=== PATIENT | female | born 1970 | race African-American/Black ===

== ENCOUNTER 2018-02-22 19:04 | Emergency (ER) | payer OTHER ==
[~2018-02-22] VITALS: Ht 165.1 cm; Wt 108.9 kg
[2018-02-22] MEDS ORDERED: METFORMIN HCL500 M1 ORAL (19:18)
[2018-02-22] MEDS ORDERED: Acetaminophen 500mg (ES) tab ORAL ONE (19:45)
--- NOTE | 2018-02-22 19:48 | Emergency Room Report ---
History of Present Illness General Chief Complaint: Lower Extremity Injury Source: Patient Present Illness HPI 47-year-old female patient presents to ER complaining of left ankle pain status post twisting her ankle at work. Patient reports she was walking downstairs boxes and twisted her ankle. Patient reports swelling and pain with ambulation. She reports she did not hit her head or lose consciousness. Patient denies fever, chest pain, shortness of breath. Allergies: Coded Allergies: No Known Allergies (Unverified , 02/22/18) Patient History Past Medical History: see triage record Reviewed Nursing Documentation: PMH: Agreed; PSxH: Agreed Nursing Documentation-PMH Hx Diabetes: Yes Review of Systems All Other Systems: negative except mentioned in HPI Physical Exam Vital Signs Date Time Temp Pulse Resp B/P (MAP) Pulse Ox O2 Delivery O2 Flow Rate FiO2 02/22/18 19:10 98.1 103 16 109/70 95 Room Air 98.1 Sp02 EP Interpretation: reviewed, normal General Appearance: well appearing, no apparent distress, alert, GCS 15, non- toxic Head: normocephalic, atraumatic Eyes: bilateral eye normal inspection, bilateral eye PERRL Respiratory: lungs clear, normal breath sounds, no rhonchi, no respiratory distress, no accessory muscle use, no wheezing, speaking full sentences Cardiovascular #1: regular rate, rhythm, no edema Cardiovascular #2: 2+ dorsalis pedis (R), 2+ dorsalis pedis (L) Musculoskeletal: back normal, digits/nails normal, gait/station normal, decreased range of motion - secondary to pain, swelling - left ankle and foot, other - NVI, cap refill <2sec, mild ecchymosis, tender - left lower extremity: base of fifth metatarsal, lateral posterior malleolus Neurologic: alert, oriented x3, responsive, motor strength/tone normal, sensory intact Psychiatric: mood/affect normal Skin: no rash Medical Decision Making PA Attestation Dr. Cortez is my supervising Physician whom patient management has been discussed with. Diagnostic Impression: Primary Impression: Ankle sprain ER Course Pt. presents to the ED c/o foot and ankle pain. Ddx considered but are not limited to fracture, sprain, strain, contusion, dislocation. No erythema, no warmth to touch, no fever, nontoxic appearing, low suspicion for septic joint. Vital signs: are WNL, pt. is afebrile Ordered X-ray and pain medication. ER COURSE Provided with pain medication. An X-ray of the left ankle was ordered, results show no acute fracture, per the preliminary reading. An X-ray of the left foot was ordered, results show no acute fracture, per the preliminary reading. Reports pain symptoms improved. AL wrap and walking shoe was applied to the left foot and ankle and was checked afterwards by me showing good alignment and support with distal neurovascular functioning intact. Crutches provided. Patient instructed on RICE method: rest, ice, compression, elevation. Patient instructed to NWB. workmans compensation paperwork completed. Return to modified work activity except pain with standing and ambulation. Followup with primary care provider for medical clearance to return to activities. Discuss referral to ortho/pain management/PT as needed. Discuss further imaging with MRI/CT as needed. DISCHARGE: -Rx provided for Tylenol for pain symptoms. At this time pt. is stable for d/c to home. Patient is resting comfortably, in no acute distress, nontoxic appearing, talking without difficulty. Will provide printed patient care instructions, and any necessary prescriptions. Patient instructed to follow with primary care provider in 3 - 5 days and to request further orthopedic follow-up. Care plan and follow up instructions have been discussed with the patient prior to discharge. Take medications as directed. Patient questions asked and answered. Patient reports understanding and agreement to treatment plan. ER precautions given, patient instructed to return to ER immediately for any new or worsening of symptoms. - Please note that this Emergency Department Report was dictated using [employer] spraying machine operator technology software, occasionally this can lead to erroneous entry secondary to interpretation by the dictation equipment. Other X-Ray Diagnostic Results Other X-Ray Diagnostic Results #1: X-Ray ordered: left ankle # of Views/Limited Vs Complete: 3 View Indication: Pain EP Interpretation: Yes PA Xray: Interpretation reviewed, by supervising MD, and agrees with findings. Interpretation: no dislocation, no soft tissue swelling, no fractures Impression: No acute disease BOLIVAR BlackmanibKailey Pedersen PA-C Other X-Ray Diagnostic Results #2: X-Ray ordered: left foot # of Views/Limited Vs Complete: 3 View Indication: Pain EP Interpretation: Yes BOLIVAR Xray: Interpretation reviewed, by supervising MD, and agrees with findings. Interpretation: no dislocation, no soft tissue swelling, no fractures Impression: No acute disease BOLIVAR Blackmanibmilton Text Jensen Pedersen PA-C Last Vital Signs Date Time Temp Pulse Resp B/P (MAP) Pulse Ox O2 Delivery O2 Flow Rate FiO2 02/22/18 19:43 98.1 02/22/18 19:10 103 16 109/70 95 Room Air Disposition: HOME, SELF-CARE Condition: Stable Scripts Acetaminophen* (TYLENOL EXTRA STRENGTH*) 500 Mg Tablet 500 MG ORAL Q8H PRN for Prn Headache/Temp > 101, #30 TAB 0 Refills Prov: Camden Pedersen 02/22/18 Patient Instructions: Ankle Sprain Additional Instructions: Patient instructed to follow up with primary care provider and discuss further referral to orthopedics. Patient instructed on RICE method: rest, ice, compression, elevation. Patient instructed to NWB. Take medications as directed. Patient questions asked and answered. ER precautions given, patient instructed to return to ER immediately for any new or worsening of symptoms. Camden Pedersen February 22, 2018 19:48
[2018-02-22] MEDS ORDERED: TYLENOL EXTRA500 MG ORAL (20:50)
[2018-02-22 21:42] VITALS: BP 109/70
--- NOTE | 2018-02-23 11:56 | Diagnostic Imaging Report ---
Indication: Pain Technique: XRAY Foot 2v L Comparison: None Findings: There is no acute fracture or dislocation. No focal soft tissue abnormality is appreciated. No radiopaque foreign body is seen. There are dorsal calcaneal enthesophytes. Impression: No evidence of acute fracture or dislocation.
--- NOTE | 2018-02-23 11:57 | Diagnostic Imaging Report ---
Indication: Pain Technique: XRAY Ankle Compl Min 3v L Comparison: None Findings: No definite evidence of acute fracture. Ankle mortise is intact on these nonstress views. Dorsal calcaneal enthesophytes noted. Otherwise, imaged hindfoot grossly unremarkable. No radiopaque foreign body seen. Impression: No evidence of acute fracture or dislocation.
== END 2018-02-22 21:50 | disposition home or self-care (01) ==
LOC: EMR 19:30
DX: S93.402A Sprain of unspecified ligament of left ankle, initial encounter (principal); X50.1XXA Overexertion from prolonged static or awkward postures, initial encounter; Y92.9 Unspecified place or not applicable; E11.9 Type 2 diabetes mellitus without complications
CPT/HCPCS: 99284